=== PATIENT | male | born 1935 | race Caucasian/White ===

== ENCOUNTER 2020-04-24 18:45 | Observation (INO) | payer MEDICARE, BC ==
[2020-04-24] MEDS ORDERED: Sodium Chloride 0.9% 1,000 ML IV ONE (19:12)
[2020-04-24] MEDS ORDERED: Ondansetron 4 MG/2 ML SDV IVPUSH STA (19:12)
[2020-04-24] MEDS ORDERED: Morphine 4 MG/ML VIAL IVPUSH ONE (19:12)
--- NOTE | 2020-04-24 19:16 | EDM.PDOC ---
ED HPI GENERAL MEDICAL PROBLEM - General Chief Complaint: Genitourinary Problem Stated Complaint: Pain Time Seen by Provider: 04/24/20 19:09 Source of Information: Reports: Patient History Limitations: Reports: No Limitations - History of Present Illness INITIAL COMMENTS - FREE TEXT/NARRATIVE: This patient is an 85 year old male that presents to the ER. Patient reports that started he was having left lower back pain, left abdominal pain. He reports also having urinary urge and nausea. He reports he saw his PCP yesterday, labs were done and CT scan. Patient reports this was done in [place]. Patient reports that he was told he may have two kidney stones. Patient reports he was put on pill abx. Patient does have his labs with him that were done yesterday. His CR was 2.0 with previous CR of 1.4 at unknown history time. Patient wbc yesterday was 17.1. UA showed blood. The patient reports that since 1am this morning his pain has increased. He reports that as time has progressed he generally is not feeling well, increased pain, increased nausea. Onset Date: 04/22/20 Duration: Day(s): (2), Getting Worse Location: Reports: Abdomen, Back Quality: Reports: Ache, Sharp Severity: Moderate Improves with: Reports: None Worsens with: Reports: None Associated Symptoms: Reports: Malaise, Nausea/Vomiting. Denies: Confusion, Chest Pain, Cough, cough w sputum, Diaphoresis, Fever/Chills, Headaches, Loss of Appetite, Rash, Seizure, Shortness of Breath, Syncope, Weakness Left Flank Pain Score (Numeric/FACES): 7 - Related Data Allergies Allergy/AdvReac Type Severity Reaction Status Date / Time No Known Allergies Allergy Verified 04/24/20 18:50 Home Meds: Home Meds Cholecalciferol (Vitamin D3) [Vitamin D] 2,000 unit PO DAILY 03/12/14 [History] Triamterene/Hydrochlorothiazid [Dyazide 37.5-25 Capsule] 1 each PO ASDIRECTED PRN 03/12/14 [History] Vit C/Ascorb Sod/Multivit-Min [Emergen-C 500 mg Chewable Tab] 500 mg PO DAILY 04/24/20 [History] cefUROXime axetiL [Cefuroxime] 500 mg PO BID 04/24/20 [History] ED ROS GENERAL - Review of Systems Review Of Systems: See Below Constitutional: Reports: Malaise, Weakness (generalized), Fatigue HEENT: Reports: No Symptoms Respiratory: Reports: No Symptoms Cardiovascular: Reports: No Symptoms Endocrine: Reports: No Symptoms GI/Abdominal: Reports: Abdominal Pain (LLQ), Nausea. Denies: Vomiting : Reports: Flank Pain (left), Urgency, Urinary Retention Musculoskeletal: Reports: Back Pain (left) Skin: Reports: No Symptoms Neurological: Reports: No Symptoms Psychiatric: Reports: No Symptoms Hematologic/Lymphatic: Reports: No Symptoms Immunologic: Reports: No Symptoms ED EXAM, GI/ABD - Physical Exam Exam: See Below Exam Limited By: No Limitations General Appearance: Alert, WD/WN, No Apparent Distress Eyes: Bilateral: Normal Appearance Ears: Normal External Exam, Normal Canal, Hearing Grossly Normal, Normal TMs Nose: Normal Inspection, Normal Mucosa, No Blood Throat/Mouth: Normal Inspection, Normal Lips, Normal Teeth, Normal Gums, Normal Oropharynx, Normal Voice, No Airway Compromise Head: Atraumatic, Normocephalic Neck: Normal Inspection, Supple, Non-Tender, Full Range of Motion Respiratory/Chest: No Respiratory Distress, Lungs Clear, Normal Breath Sounds, No Accessory Muscle Use Cardiovascular: Normal Peripheral Pulses, Regular Rate, Rhythm, No Edema, No Gallop, No JVD, No Murmur, No Rub GI/Abdominal Exam: Normal Bowel Sounds, Soft, No Organomegaly, No Distention, No Abnormal Bruit, No Mass, Pelvis Stable, Tender (LLQ). No: Guarding, Rigid, Rebound (Male) Exam: Deferred Rectal (Males) Exam: Deferred Back Exam: Normal Inspection, Full Range of Motion, CVA Tenderness (L). No: CVA Tenderness (R) Extremities: Normal Inspection, Normal Range of Motion, Non-Tender, No Pedal Edema, Normal Capillary Refill Neurological: Alert, Oriented, Normal Cognition, No Motor/Sensory Deficits Psychiatric: Normal Affect, Normal Mood Skin Exam: Warm, Dry, Intact, Normal Color, No Rash Lymphatic: No Adenopathy Course - Vital Signs Last Recorded V/S: Last Vital Signs Temp 98.3 F 04/25/20 08:00 Pulse 84 04/25/20 08:00 Resp 14 04/25/20 08:00 BP 107/63 04/25/20 08:00 Pulse Ox 96 04/25/20 08:00 - Orders/Labs/Meds Orders: Active Orders 24 hr Category Date Time Status Abdomen Pelvis wo Cont [CT] Stat Exams 04/24/20 19:11 Taken CULTURE BLOOD [BC] Stat Lab 04/24/20 19:25 Received CULTURE BLOOD [BC] Stat Lab 04/24/20 19:33 Received Blood Culture x2 Reflex Set [OM.PC] Stat Oth 04/24/20 19:10 Ordered Medication Orders Acetaminophen (Tylenol) 650 mg PO Q4H PRN PRN Reason: Pain (Mild 1-3)/fever Ceftriaxone Sodium (Rocephin) 1 gm IVPUSH Q24H [facility] Last Admin: 04/24/20 22:18 Dose: 1 gm Documented by: CHAY Enoxaparin Sodium (Lovenox) 30 mg SUBCUT Q24H [facility] Last Admin: 04/24/20 22:18 Dose: 30 mg Documented by: CHAY Sodium Chloride (Normal Saline) 1,000 mls @ 75 mls/hr IV ASDIRECTED [facility] Stop: 04/25/20 10:53 Last Admin: 04/24/20 22:17 Dose: 75 mls/hr Documented by: CHAY Morphine Sulfate (Morphine) 2 mg IVPUSH Q2H PRN PRN Reason: Pain (severe 7-10) Ondansetron HCl (Zofran Odt) 4 mg PO Q6H PRN PRN Reason: nausea, able to take PO Oxycodone/Acetaminophen (Percocet 325-5 Mg) 1 tab PO Q4H PRN PRN Reason: Pain (moderate 4-6) Last Admin: 04/25/20 07:02 Dose: 1 tab Documented by: Admin: 04/24/20 22:25 Dose: 1 tab Documented by: CHAY Polyethylene Glycol (Miralax) 17 gm PO DAILY PRN PRN Reason: Constipation Tamsulosin HCl (Flomax) 0.4 mg PO BEDTIME [facility] Last Admin: 04/24/20 22:17 Dose: 0.4 mg Documented by: CHAY Labs: Laboratory Tests 04/24/20 04/24/20 04/24/20 Range/Units 19:33 19:33 19:33 WBC 16.8 H (5.0-10.0) 10^3/uL RBC 4.73 (4.50-6.00) 10^6/uL Hgb 15.1 (14.0-18.0) g/dL Hct 45.1 (40.0-54.0) % MCV 95.3 H (82.0-94.0) fL MCH 31.9 (27.0-32.0) pg MCHC 33.5 (33.0-38.0) g/dL RDW Coeff of Pari 12.0 (11.0-15.0) % Plt Count 222 (150-400) 10^3/uL Neut % (Auto) 83.4 (35-85) % Lymph % (Auto) 8.5 L (10-55) % [place] % (Auto) 7.3 (0-16) % Eos % (Auto) 0.6 (0-5) % Baso % (Auto) 0.2 (0-3) % Neut # (Auto) 13.98 H (1.80-7.00) 10^3/uL Lymph # (Auto) 1.43 (1.00-4.80) 10^3/uL [place] # (Auto) 1.22 H (0.00-0.80) 10^3/uL Eos # (Auto) 0.10 (0.00-0.45) 10^3/uL Baso # (Auto) 0.04 10^3/uL Sodium 136 (136-145) mEq/L Potassium 4.9 (3.5-5.0) mEq/L Chloride 99 (98-106) mEq/L Carbon Dioxide 26 (21-32) mmol/L BUN 19 H (7-18) mg/dL Creatinine 2.1 H D (0.7-1.3) mg/dL Est Cr Clr Drug Dosing 26.97 mL/min Estimated GFR (MDRD) 30 L (>=60) mL/min Glucose 227 H D (75-99) mg/dL Lactic Acid 3.2 H (0.4-2.0) mmol/L Calcium 9.2 (8.4-10.1) mg/dL Total Bilirubin 0.7 (0.0-1.0) mg/dL AST 15 (15-37) U/L ALT 25 (12-78) U/L Alkaline Phosphatase 92 (46-116) U/L Total Protein 7.8 (6.4-8.2) g/dL Albumin 3.5 (3.4-5.0) g/dL Amylase 62 (25-115) U/L Lipase 107 (73-393) U/L Urine Color (YELLOW) Urine Appearance (CLEAR) Urine pH (4.5-8.0) Ur Specific [place] (1.003-1.020) Urine Protein (NEGATIVE) mg/dL Urine Glucose (UA) (NEGATIVE) mg/dL Urine Ketones (NEGATIVE) mg/dL Urine Occult Blood (NEGATIVE) Urine Nitrite (NEGATIVE) Urine Bilirubin (NEGATIVE) Urine Urobilinogen (0.2-1.0) EU/dL Ur Leukocyte Esterase (NEGATIVE) Urine RBC (0-5) /HPF Urine WBC (0-5) /HPF 04/24/20 Range/Units 19:58 WBC (5.0-10.0) 10^3/uL RBC (4.50-6.00) 10^6/uL Hgb (14.0-18.0) g/dL Hct (40.0-54.0) % MCV (82.0-94.0) fL MCH (27.0-32.0) pg MCHC (33.0-38.0) g/dL RDW Coeff of Pari (11.0-15.0) % Plt Count (150-400) 10^3/uL Neut % (Auto) (35-85) % Lymph % (Auto) (10-55) % [place] % (Auto) (0-16) % Eos % (Auto) (0-5) % Baso % (Auto) (0-3) % Neut # (Auto) (1.80-7.00) 10^3/uL Lymph # (Auto) (1.00-4.80) 10^3/uL [place] # (Auto) (0.00-0.80) 10^3/uL Eos # (Auto) (0.00-0.45) 10^3/uL Baso # (Auto) 10^3/uL Sodium (136-145) mEq/L Potassium (3.5-5.0) mEq/L Chloride (98-106) mEq/L Carbon Dioxide (21-32) mmol/L BUN (7-18) mg/dL Creatinine (0.7-1.3) mg/dL Est Cr Clr Drug Dosing mL/min Estimated GFR (MDRD) (>=60) mL/min Glucose (75-99) mg/dL Lactic Acid (0.4-2.0) mmol/L Calcium (8.4-10.1) mg/dL Total Bilirubin (0.0-1.0) mg/dL AST (15-37) U/L ALT (12-78) U/L Alkaline Phosphatase (46-116) U/L Total Protein (6.4-8.2) g/dL Albumin (3.4-5.0) g/dL Amylase (25-115) U/L Lipase (73-393) U/L Urine Color Yellow (YELLOW) Urine Appearance Clear (CLEAR) Urine pH 6.0 (4.5-8.0) Ur Specific [place] 1.025 H (1.003-1.020) Urine Protein Negative (NEGATIVE) mg/dL Urine Glucose (UA) 500 H (NEGATIVE) mg/dL Urine Ketones Trace H (NEGATIVE) mg/dL Urine Occult Blood Trace-intact H (NEGATIVE) Urine Nitrite Negative (NEGATIVE) Urine Bilirubin Negative (NEGATIVE) Urine Urobilinogen 0.2 (0.2-1.0) EU/dL Ur Leukocyte Esterase Negative (NEGATIVE) Urine RBC 0-5 (0-5) /HPF Urine WBC Not seen (0-5) /HPF Meds: Medications Generic Name Dose Route Start Last Admin Trade Name Freq PRN Reason Stop Dose Admin Acetaminophen 650 mg 04/24/20 21:34 Tylenol PO Q4H PRN Pain (Mild 1-3)/fever Ceftriaxone Sodium 1 gm 04/24/20 22:00 04/24/20 22:18 Rocephin IVPUSH 1 gm Q24H ALISHA Administration Enoxaparin Sodium 30 mg 04/24/20 22:00 04/24/20 22:18 Lovenox SUBCUT 30 mg Q24H ALISHA Administration Sodium Chloride 1,000 mls @ 75 mls/hr 04/24/20 21:34 04/24/20 22:17 Normal Saline IV 04/25/20 10:53 75 mls/hr ASDIRECTED ALISHA Administration Morphine Sulfate 2 mg 04/24/20 21:34 Morphine IVPUSH Q2H PRN Pain (severe 7-10) Ondansetron HCl 4 mg 04/24/20 21:34 Zofran Odt PO Q6H PRN nausea, able to take PO Oxycodone/Acetaminophen 1 tab 04/24/20 21:34 04/25/20 07:02 Percocet 325-5 Mg PO 1 tab Q4H PRN Administration Pain (moderate 4-6) Polyethylene Glycol 17 gm 04/24/20 21:34 Miralax PO DAILY PRN Constipation Tamsulosin HCl 0.4 mg 04/24/20 21:34 04/24/20 22:17 Flomax PO 0.4 mg BEDTIME ALISHA Administration Discontinued Medications Generic Name Dose Route Start Last Admin Trade Name Freq PRN Reason Stop Dose Admin Sodium Chloride 1,000 mls @ 500 mls/hr 04/24/20 19:12 04/24/20 19:40 Normal Saline IV 04/24/20 21:11 500 mls/hr .BOLUS ONE Administration Morphine Sulfate 4 mg 04/24/20 19:12 04/24/20 19:40 Morphine IVPUSH 04/24/20 19:13 4 mg ONETIME ONE Administration Ondansetron HCl 4 mg 04/24/20 19:12 04/24/20 19:40 Zofran IVPUSH 04/24/20 19:13 4 mg NOW STA Administration - Radiology Interpretation Free Text/Narrative:: Abd/Pelvis CT without: 2mm UVJ ureter stone with hydroureter and hydronephrosis. See report for other findings not relevant to this ER visit. CT Results Date: 04/24/20 CT Results Time: 20:50 - Re-Assessments/Exams Free Text/Narrative Re-Assessment/Exam: 04/24/20 20:56 Patient does report he is feeling about half better since being in the ER. I will admit patient based on his elevated CR, WBC and ct result. UA just shows blood, I believe his wbc elevation is due to the hydro with elevated CR. Will admit, manage pain, strain urine, hydrate. I will prescribe abx, as patient was put on one yesterday. I will repeat labs in the morning and evaluate. 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 - Discharge Information *PRESCRIPTION DRUG MONITORING PROGRAM REVIEWED*: Not Applicable *COPY OF PRESCRIPTION DRUG MONITORING REPORT IN PATIENT BRENNAN: Not Applicable - My Orders Last 24 Hours: My Active Orders 04/24/20 19:10 Blood Culture x2 Reflex Set [OM.PC] Stat 04/24/20 19:11 Abdomen Pelvis wo Cont [CT] Stat 04/24/20 19:25 CULTURE BLOOD [BC] Stat 04/24/20 19:33 CULTURE BLOOD [BC] Stat - Assessment/Plan Last 24 Hours: My Active Orders 04/24/20 19:10 Blood Culture x2 Reflex Set [OM.PC] Stat 04/24/20 19:11 Abdomen Pelvis wo Cont [CT] Stat 04/24/20 19:25 CULTURE BLOOD [BC] Stat 04/24/20 19:33 CULTURE BLOOD [BC] Stat Plan: PLEASE SEE RN NOTE FOR PFSH. PLEASE USE ER H&P ADMIT H&P
[2020-04-24] MEDS ORDERED: Acetaminophen 325 MG Tab PO PRN (21:34)
[2020-04-24] MEDS ORDERED: Polyethylene Glycol 3350 Powder 17 GM Packet PO PRN (21:34)
[2020-04-24] MEDS ORDERED: Ondansetron 4 MG Tab.DIS PO PRN (21:34)
[2020-04-24] MEDS ORDERED: Morphine 2 MG/ML SYRINGE IVPUSH PRN (21:34)
[2020-04-24] MEDS ORDERED: Sodium Chloride 0.9% 1,000 ML IV SCH (21:34)
[2020-04-24] MEDS ORDERED: Enoxaparin 30 MG/0.3 ML Syringe SUBCUT SCH (22:00)
[2020-04-24] MEDS: Tamsulosin 0.4 MG Cap.ER PO SCH (22:17)
[2020-04-24] MEDS: cefTRIAXone 1 GM Vial IVPUSH SCH (22:18)
[2020-04-24] MEDS: Acetaminophen/oxyCODONE 325-5 MG Tab PO PRN (22:25)
[2020-04-25] MEDS: Acetaminophen/oxyCODONE 325-5 MG Tab PO PRN (07:02)
--- NOTE | 2020-04-25 10:34 | PCM.PN ---
- General Info Date of Service: 04/25/20 Functional Status: Reports: Tolerating Diet, Urinating (dribbling this morning), Other (still having pain left groin, does help with pain pill) - Review of Systems General: Reports: No Symptoms. Denies: Fever HEENT: Reports: No Symptoms Pulmonary: Reports: No Symptoms Cardiovascular: Reports: No Symptoms Gastrointestinal: Reports: No Symptoms Genitourinary: Reports: Pain (left groin), Urgency, Retention, Flank Pain (left), Other (dribbling) Musculoskeletal: Reports: No Symptoms Skin: Reports: No Symptoms Neurological: Reports: No Symptoms Psychiatric: Reports: No Symptoms - Patient Data Vitals - Most Recent: Last Vital Signs Temp 98.3 F 04/25/20 08:00 Pulse 84 04/25/20 08:00 Resp 14 04/25/20 08:00 BP 107/63 04/25/20 08:00 Pulse Ox 96 04/25/20 08:00 Weight - Most Recent: 230 lb Lab Results Last 24 Hours: Laboratory Results - last 24 hr 04/24/20 04/24/20 04/24/20 Range/Units 19:33 19:33 19:33 WBC 16.8 H (5.0-10.0) 10^3/uL RBC 4.73 (4.50-6.00) 10^6/uL Hgb 15.1 (14.0-18.0) g/dL Hct 45.1 (40.0-54.0) % MCV 95.3 H (82.0-94.0) fL MCH 31.9 (27.0-32.0) pg MCHC 33.5 (33.0-38.0) g/dL RDW Coeff of Pari 12.0 (11.0-15.0) % Plt Count 222 (150-400) 10^3/uL Neut % (Auto) 83.4 (35-85) % Lymph % (Auto) 8.5 L (10-55) % [place] % (Auto) 7.3 (0-16) % Eos % (Auto) 0.6 (0-5) % Baso % (Auto) 0.2 (0-3) % Neut # (Auto) 13.98 H (1.80-7.00) 10^3/uL Lymph # (Auto) 1.43 (1.00-4.80) 10^3/uL [place] # (Auto) 1.22 H (0.00-0.80) 10^3/uL Eos # (Auto) 0.10 (0.00-0.45) 10^3/uL Baso # (Auto) 0.04 10^3/uL Sodium 136 (136-145) mEq/L Potassium 4.9 (3.5-5.0) mEq/L Chloride 99 (98-106) mEq/L Carbon Dioxide 26 (21-32) mmol/L BUN 19 H (7-18) mg/dL Creatinine 2.1 H D (0.7-1.3) mg/dL Est Cr Clr Drug Dosing 26.97 mL/min Estimated GFR (MDRD) 30 L (>=60) mL/min Glucose 227 H D (75-99) mg/dL Lactic Acid 3.2 H (0.4-2.0) mmol/L Calcium 9.2 (8.4-10.1) mg/dL Total Bilirubin 0.7 (0.0-1.0) mg/dL AST 15 (15-37) U/L ALT 25 (12-78) U/L Alkaline Phosphatase 92 (46-116) U/L Total Protein 7.8 (6.4-8.2) g/dL Albumin 3.5 (3.4-5.0) g/dL Amylase 62 (25-115) U/L Lipase 107 (73-393) U/L Urine Color (YELLOW) Urine Appearance (CLEAR) Urine pH (4.5-8.0) Ur Specific [place] (1.003-1.020) Urine Protein (NEGATIVE) mg/dL Urine Glucose (UA) (NEGATIVE) mg/dL Urine Ketones (NEGATIVE) mg/dL Urine Occult Blood (NEGATIVE) Urine Nitrite (NEGATIVE) Urine Bilirubin (NEGATIVE) Urine Urobilinogen (0.2-1.0) EU/dL Ur Leukocyte Esterase (NEGATIVE) Urine RBC (0-5) /HPF Urine WBC (0-5) /HPF 04/24/20 04/25/20 04/25/20 Range/Units 19:58 07:30 07:30 WBC 13.3 H (5.0-10.0) 10^3/uL RBC 4.26 L (4.50-6.00) 10^6/uL Hgb 13.5 L (14.0-18.0) g/dL Hct 41.6 (40.0-54.0) % MCV 97.7 H (82.0-94.0) fL MCH 31.7 (27.0-32.0) pg MCHC 32.5 L (33.0-38.0) g/dL RDW Coeff of Pari 12.2 (11.0-15.0) % Plt Count 205 (150-400) 10^3/uL Neut % (Auto) 72.5 (35-85) % Lymph % (Auto) 13.4 (10-55) % [place] % (Auto) 11.4 (0-16) % Eos % (Auto) 2.4 (0-5) % Baso % (Auto) 0.3 (0-3) % Neut # (Auto) 9.67 H (1.80-7.00) 10^3/uL Lymph # (Auto) 1.79 (1.00-4.80) 10^3/uL [place] # (Auto) 1.52 H (0.00-0.80) 10^3/uL Eos # (Auto) 0.32 (0.00-0.45) 10^3/uL Baso # (Auto) 0.04 10^3/uL Sodium 138 (136-145) mEq/L Potassium 4.6 (3.5-5.0) mEq/L Chloride 101 (98-106) mEq/L Carbon Dioxide 28 (21-32) mmol/L BUN 17 (7-18) mg/dL Creatinine 2.1 H (0.7-1.3) mg/dL Est Cr Clr Drug Dosing 26.55 mL/min Estimated GFR (MDRD) 30 L (>=60) mL/min Glucose 166 H D (75-99) mg/dL Lactic Acid (0.4-2.0) mmol/L Calcium 8.6 (8.4-10.1) mg/dL Total Bilirubin (0.0-1.0) mg/dL AST (15-37) U/L ALT (12-78) U/L Alkaline Phosphatase (46-116) U/L Total Protein (6.4-8.2) g/dL Albumin (3.4-5.0) g/dL Amylase (25-115) U/L Lipase (73-393) U/L Urine Color Yellow (YELLOW) Urine Appearance Clear (CLEAR) Urine pH 6.0 (4.5-8.0) Ur Specific [place] 1.025 H (1.003-1.020) Urine Protein Negative (NEGATIVE) mg/dL Urine Glucose (UA) 500 H (NEGATIVE) mg/dL Urine Ketones Trace H (NEGATIVE) mg/dL Urine Occult Blood Trace-intact H (NEGATIVE) Urine Nitrite Negative (NEGATIVE) Urine Bilirubin Negative (NEGATIVE) Urine Urobilinogen 0.2 (0.2-1.0) EU/dL Ur Leukocyte Esterase Negative (NEGATIVE) Urine RBC 0-5 (0-5) /HPF Urine WBC Not seen (0-5) /HPF Med Orders - Current: Current Medications Acetaminophen (Tylenol) 650 mg PO Q4H PRN PRN Reason: Pain (Mild 1-3)/fever Ceftriaxone Sodium (Rocephin) 1 gm IVPUSH Q24H [facility] Last Admin: 04/24/20 22:18 Dose: 1 gm Documented by: Enoxaparin Sodium (Lovenox) 30 mg SUBCUT Q24H [facility] Last Admin: 04/24/20 22:18 Dose: 30 mg Documented by: Sodium Chloride (Normal Saline) 1,000 mls @ 75 mls/hr IV ASDIRECTED [facility] Stop: 04/25/20 10:53 Last Admin: 04/24/20 22:17 Dose: 75 mls/hr Documented by: Morphine Sulfate (Morphine) 2 mg IVPUSH Q2H PRN PRN Reason: Pain (severe 7-10) Ondansetron HCl (Zofran Odt) 4 mg PO Q6H PRN PRN Reason: nausea, able to take PO Oxycodone/Acetaminophen (Percocet 325-5 Mg) 1 tab PO Q4H PRN PRN Reason: Pain (moderate 4-6) Last Admin: 04/25/20 07:02 Dose: 1 tab Documented by: Polyethylene Glycol (Miralax) 17 gm PO DAILY PRN PRN Reason: Constipation Tamsulosin HCl (Flomax) 0.4 mg PO BEDTIME [facility] Last Admin: 04/24/20 22:17 Dose: 0.4 mg Documented by: Discontinued Medications Sodium Chloride (Normal Saline) 1,000 mls @ 500 mls/hr IV .BOLUS ONE Stop: 04/24/20 21:11 Last Admin: 04/24/20 19:40 Dose: 500 mls/hr Documented by: Morphine Sulfate (Morphine) 4 mg IVPUSH ONETIME ONE Stop: 04/24/20 19:13 Last Admin: 04/24/20 19:40 Dose: 4 mg Documented by: Ondansetron HCl (Zofran) 4 mg IVPUSH NOW STA Stop: 04/24/20 19:13 Last Admin: 04/24/20 19:40 Dose: 4 mg Documented by: - Exam General: Alert, Oriented, Cooperative, No Acute Distress Neck: Supple, Trachea Midline Lungs: Clear to Auscultation, Normal Respiratory Effort Cardiovascular: Regular Rate, Regular Rhythm GI/Abdominal Exam: Soft, Distended (bladder), Tender (LLQ, over bladder, which feels distended this morning.) (Male) Exam: Suprapubic Fullness Back Exam: Normal Inspection, Full Range of Motion, CVA Tenderness (L) Extremities: Normal Inspection, Normal Range of Motion, Non-Tender, Normal Capillary Refill, Pedal Edema (trace +1 BLE) Peripheral Pulses: 2+: Radial (L), Radial (R), Posterior Tibial (L), Posterior Tibial (R) Skin: Warm, Dry, Intact Neurological: No New Focal Deficit, Normal Speech Psy/Mental Status: Alert, Normal Affect, Normal Mood Sepsis Event Note - Evaluation Sepsis Screening Result: No Definite Risk - Focused Exam Vital Signs: Vital Signs Temp Pulse Resp BP Pulse Ox 04/25/20 08:00 98.3 F 84 14 107/63 96 04/25/20 04:00 97.3 F 72 18 109/63 97 04/25/20 00:00 97.5 F 82 18 105/58 L 97 - Problem List Review Problem List Initiated/Reviewed/Updated: Yes - My Orders Last 24 Hours: My Active Orders 04/24/20 19:10 Blood Culture x2 Reflex Set [OM.PC] Stat 04/24/20 19:11 Abdomen Pelvis wo Cont [CT] Stat 04/24/20 19:25 CULTURE BLOOD [BC] Stat 04/24/20 19:33 CULTURE BLOOD [BC] Stat 04/24/20 21:15 Resuscitation Status Routine 04/24/20 21:34 Acetaminophen [TylenoL] 650 mg PO Q4H PRN Acetaminophen/oxyCODONE [Percocet 325-5 MG] 1 tab PO Q4H PRN Morphine 2 mg IVPUSH Q2H PRN Ondansetron [Zofran ODT] 4 mg PO Q6H PRN Sodium Chloride 0.9% [Normal Saline] 1,000 ml IV ASDIRECTED Tamsulosin [Flomax] 0.4 mg PO BEDTIME polyethylene glycoL 3350 [MiraLAX] 17 gm PO DAILY PRN 04/24/20 21:34 Patient Status [ADT] Routine Ambulate [RC] .PRN Antiembolic Devices [RC] 1000,2200 Height and Weight [RC] 0600 Height and Weight [RC] UPON Notify Provider Vital Signs [RC] .PRN Oxygen Therapy [RC] .PRN Strain Urine [RC] ASDIRECTED Up With Assistance [RC] .PRN Up to Chair [RC] .PRN Vital Signs [RC] 0000,0400,0800,1200,1600,2000 Antiembolic Hose [OM.PC] Per Unit Routine 04/24/20 22:00 Enoxaparin [Lovenox] 30 mg SUBCUT Q24H cefTRIAXone [Rocephin] 1 gm IVPUSH Q24H 04/25/20 09:24 Urinary Catheter Assessment [RC] ASDIRECTED 04/25/20 09:30 Insert [place] Catheter [Insert Urinary Catheter] [OM.PC] Q24H 04/26/20 05:00 BASIC METABOLIC PANEL,BMP [CHEM] DAILY CBC WITH AUTO DIFF [HEME] DAILY - Plan Plan:: 04/25/20 0900am This patient is an 85 year old pleasant male that was admitted last night. He was admitted for renal insufficiency, hydronephrosis. His pain was controlled with pain medication. This morning the patient reports that he is still having some left back, left groin pain. Patient reports that the pain medication does help some. Patient had a 2mm stone UVJ left. The patient today reports that has not urinated much and has been dribbling with urinary urge. I reviewed patient labs and his CR on admission was 2.1, and today it is 2.1 as well. On exam, the patient does have distended bladder, and with his urge and continued elevated CR. I will insert a oshea to check for urinary retention. This was inserted and 550ml output with insertion per RN. The patient now reports he does feel a little relief. Will continue the admit and recheck CR tomorrow morning for improvement after oshea insertion. I have stopped his fluids.
[2020-04-25] MEDS ORDERED: Hydrochlorothiazide/Triamterene 25-37.5 MG Cap PO SCH (14:15)
[2020-04-25] MEDS ORDERED: Furosemide 40 MG/4 ML VIAL IVPUSH ONE ×2 (19:26→19:29)
[2020-04-25 20:29] VITALS: BP 138/63; PULSE 88
[2020-04-25] MEDS: Tamsulosin 0.4 MG Cap.ER PO SCH (20:29)
--- NOTE | 2020-04-25 21:13 | PCM.DCSUM1 ---
Discharge Summary - Hospital Course HPI Initial Comments: 04/25/20 1900 I was approached by ARRON BECKER about this patient. He reported the patient was not feeling well and had increase in pain and was diaphoretic. I went and saw the patient right away. The patient reports that he generally does not feel very well this evening. He reports that his pain is much worse. He reports now he is also hurting on the right lower abd and right flank, but also his left abd and flank have increase in pain. The patient is diaphoretic. The patient oxygen saturation is 90% on RA. Placed on 2L NC to 95%. Patient reports that he feels lightheaded and generally weak. He reports he just not feel very good. The patient denies chest pain, shortness of breath, headache. Repeated patient labs. Patient wbc is back up to 16.8, his CR has not moved and is again 2.1 even after fluids and oshea insertion. Patient temperature 100.8. Patient vital signs reviewed. I spoke to patient and via phone who has reported that would like transferred if he is worse. I then called and spoke to Dr. Garza at [facility] who has accepted the patient. He reports to give another Liter NS and continue patient abx orders. I will transfer patient. - Discharge Data Discharge Date: 04/25/20 Discharge Disposition: DC/Tfer to Acute Hospital 02 Condition: Poor - Referral to Home Health Primary Care Physician: PCP None - Discharge Plan *PRESCRIPTION DRUG MONITORING PROGRAM REVIEWED*: Not Applicable *COPY OF PRESCRIPTION DRUG MONITORING REPORT IN PATIENT BRENNAN: Not Applicable Home Medications: Home Meds Cholecalciferol (Vitamin D3) [Vitamin D] 2,000 unit PO DAILY 03/12/14 [History] Triamterene/Hydrochlorothiazid [Dyazide 37.5-25 Capsule] 1 each PO ASDIRECTED PRN 03/12/14 [History] Vit C/Ascorb Sod/Multivit-Min [Emergen-C 500 mg Chewable Tab] 500 mg PO DAILY 04/24/20 [History] cefUROXime axetiL [Cefuroxime] 500 mg PO BID 04/24/20 [History] Oxygen Therapy Mode: Nasal Cannula Forms: ED Department Discharge Referrals: PCP,None [Primary Care Provider] - - Discharge Summary/Plan Comment DC Time >30 min.: No Discharge Summary/Plan Comment: This patient is being transferred to [facility]. The risk vs benefits are explained to the patient and he has accepted the transfer. The risk of transfer are mvc, , sepsis, worsening of condition. The risk of staying in [place] is worsening of condition, , sepsis, no urologist. The benefits of the transfer are higher level of care, urologist. The benefits of staying in [place] is closer to home. - General Info Functional Status: Reports: New Symptoms (pain increased, diaphoretic, generally malaised, lightheaded) - Review of Systems General: Reports: Fever, Weakness (generally), Fatigue, Malaise, Chills HEENT: Reports: No Symptoms Pulmonary: Denies: Shortness of Breath Cardiovascular: Reports: Lightheadedness Gastrointestinal: Reports: Abdominal Pain (increase in pain LLQ, RLQ.), Nausea. Denies: Vomiting Genitourinary: Reports: Other (oshea in place) Musculoskeletal: Reports: Back Pain (flank bilateral) Skin: Reports: Pallor, Diaphoresis Neurological: Reports: No Symptoms Psychiatric: Reports: No Symptoms - Patient Data Vitals - Most Recent: Last Vital Signs Temp 99.0 F 04/25/20 20:00 Pulse 88 04/25/20 20:00 Resp 18 04/25/20 20:00 BP 138/63 04/25/20 20:00 Pulse Ox 90 L 04/25/20 20:00 Weight - Most Recent: 230 lb I&O - Last 24 hours: Intake & Output 04/25/20 04/25/20 04/25/20 06:59 14:59 22:59 Intake Total 1000 Balance 1000 Lab Results - Last 24 hrs: Laboratory Results - last 24 hr 04/25/20 04/25/20 04/25/20 Range/Units 07:25 07:25 07:25 WBC 16.8 H (5.0-10.0) 10^3/uL RBC 4.23 L (4.50-6.00) 10^6/uL Hgb 13.6 L (14.0-18.0) g/dL Hct 41.4 (40.0-54.0) % MCV 97.9 H (82.0-94.0) fL MCH 32.2 H (27.0-32.0) pg MCHC 32.9 L (33.0-38.0) g/dL RDW Coeff of Pari 12.2 (11.0-15.0) % Plt Count 207 (150-400) 10^3/uL Neut % (Auto) 77.6 (35-85) % Lymph % (Auto) 9.1 L (10-55) % Billings % (Auto) 11.1 (0-16) % Eos % (Auto) 2.1 (0-5) % Baso % (Auto) 0.1 (0-3) % Neut # (Auto) 13.04 H (1.80-7.00) 10^3/uL Lymph # (Auto) 1.53 (1.00-4.80) 10^3/uL Billings # (Auto) 1.87 H (0.00-0.80) 10^3/uL Eos # (Auto) 0.35 (0.00-0.45) 10^3/uL Baso # (Auto) 0.02 10^3/uL Sodium 135 L (136-145) mEq/L Potassium 4.4 (3.5-5.0) mEq/L Chloride 101 (98-106) mEq/L Carbon Dioxide 27 (21-32) mmol/L BUN 18 (7-18) mg/dL Creatinine 2.1 H (0.7-1.3) mg/dL Est Cr Clr Drug Dosing 26.55 mL/min Estimated GFR (MDRD) 30 L (>=60) mL/min Glucose 171 H (75-99) mg/dL Calcium 9.2 (8.4-10.1) mg/dL NT-Pro-B Natriuret Pep 382 (0-1000) pg/mL 04/25/20 04/25/20 Range/Units 07:30 07:30 WBC 13.3 H (5.0-10.0) 10^3/uL RBC 4.26 L (4.50-6.00) 10^6/uL Hgb 13.5 L (14.0-18.0) g/dL Hct 41.6 (40.0-54.0) % MCV 97.7 H (82.0-94.0) fL MCH 31.7 (27.0-32.0) pg MCHC 32.5 L (33.0-38.0) g/dL RDW Coeff of Pari 12.2 (11.0-15.0) % Plt Count 205 (150-400) 10^3/uL Neut % (Auto) 72.5 (35-85) % Lymph % (Auto) 13.4 (10-55) % Billings % (Auto) 11.4 (0-16) % Eos % (Auto) 2.4 (0-5) % Baso % (Auto) 0.3 (0-3) % Neut # (Auto) 9.67 H (1.80-7.00) 10^3/uL Lymph # (Auto) 1.79 (1.00-4.80) 10^3/uL Billings # (Auto) 1.52 H (0.00-0.80) 10^3/uL Eos # (Auto) 0.32 (0.00-0.45) 10^3/uL Baso # (Auto) 0.04 10^3/uL Sodium 138 (136-145) mEq/L Potassium 4.6 (3.5-5.0) mEq/L Chloride 101 (98-106) mEq/L Carbon Dioxide 28 (21-32) mmol/L BUN 17 (7-18) mg/dL Creatinine 2.1 H (0.7-1.3) mg/dL Est Cr Clr Drug Dosing 26.55 mL/min Estimated GFR (MDRD) 30 L (>=60) mL/min Glucose 166 H (75-99) mg/dL Calcium 8.6 (8.4-10.1) mg/dL NT-Pro-B Natriuret Pep (0-1000) pg/mL CORRIE Results - Last 24 hrs: Microbiology 04/24/20 19:25 Aerobic Blood Culture - Preliminary Blood - Venous - Lab Draw NO GROWTH AFTER 1 DAY Anaerobic Blood Culture - Preliminary NO GROWTH AFTER 1 DAY 04/24/20 19:33 Aerobic Blood Culture - Preliminary Blood - Venous NO GROWTH AFTER 1 DAY Anaerobic Blood Culture - Preliminary NO GROWTH AFTER 1 DAY Med Orders - Current: Current Medications Acetaminophen (Tylenol) 650 mg PO Q4H PRN PRN Reason: Pain (Mild 1-3)/fever Ceftriaxone Sodium (Rocephin) 1 gm IVPUSH Q24H ALISHA Last Admin: 04/24/20 22:18 Dose: 1 gm Documented by: Enoxaparin Sodium (Lovenox) 30 mg SUBCUT Q24H COUNT INCLUDES THE [facility] Last Admin: 04/24/20 22:18 Dose: 30 mg Documented by: Morphine Sulfate (Morphine) 2 mg IVPUSH Q2H PRN PRN Reason: Pain (severe 7-10) Ondansetron HCl (Zofran Odt) 4 mg PO Q6H PRN PRN Reason: nausea, able to take PO Last Admin: 04/25/20 17:22 Dose: 4 mg Documented by: Oxycodone/Acetaminophen (Percocet 325-5 Mg) 1 tab PO Q4H PRN PRN Reason: Pain (moderate 4-6) Last Admin: 04/25/20 07:02 Dose: 1 tab Documented by: Polyethylene Glycol (Miralax) 17 gm PO DAILY PRN PRN Reason: Constipation Tamsulosin HCl (Flomax) 0.4 mg PO BEDTIME COUNT INCLUDES THE [facility] Last Admin: 04/25/20 20:29 Dose: 0.4 mg Documented by: Triamterene/HCTZ (Dyazide 25-37.5 Mg) 0 each PO DAILY COUNT INCLUDES THE [facility] Last Admin: 04/25/20 14:46 Dose: 1 each Documented by: Discontinued Medications Furosemide (Lasix) 40 mg IVPUSH ONETIME ONE Stop: 04/25/20 19:27 Furosemide (Lasix) 40 mg IVPUSH ONETIME ONE Stop: 04/25/20 19:30 Sodium Chloride (Normal Saline) 1,000 mls @ 500 mls/hr IV .BOLUS ONE Stop: 04/24/20 21:11 Last Admin: 04/24/20 19:40 Dose: 500 mls/hr Documented by: Sodium Chloride (Normal Saline) 1,000 mls @ 75 mls/hr IV ASDIRECTED ALISHA Stop: 04/25/20 10:53 Last Infusion: 04/25/20 12:05 Dose: Infused Documented by: Morphine Sulfate (Morphine) 4 mg IVPUSH ONETIME ONE Stop: 04/24/20 19:13 Last Admin: 04/24/20 19:40 Dose: 4 mg Documented by: Ondansetron HCl (Zofran) 4 mg IVPUSH NOW STA Stop: 04/24/20 19:13 Last Admin: 04/24/20 19:40 Dose: 4 mg Documented by: - Exam General: Reports: Alert, Oriented, Cooperative, Mild Distress Neck: Reports: Supple, Trachea Midline, No JVD Lungs: Reports: Clear to Auscultation, Normal Respiratory Effort Cardiovascular: Reports: Regular Rate, Regular Rhythm GI/Abdominal Exam: Normal Bowel Sounds, Soft, Distended, Guarding, Tender (RLQ, LLQ), Other (obese). No: Rebound Back Exam: Reports: Normal Inspection, Full Range of Motion, CVA Tenderness (L), CVA Tenderness (R) Extremities: Normal Inspection, Normal Range of Motion, Non-Tender, No Pedal Edema, Normal Capillary Refill Skin: Reports: Warm, Dry, Intact Neurological: Reports: No New Focal Deficit, Normal Speech Psy/Mental Status: Reports: Alert, Anxious
[2020-04-25] MEDS ORDERED: Sodium Chloride 0.9% 1,000 ML IV SCH (21:45)
[2020-04-25] MEDS: cefTRIAXone 1 GM Vial IVPUSH SCH (22:28)
== END 2020-04-25 23:06 ==
LOC: CC.ED 18:45 → CC.MS 20:55 → UNDOADMOB 20:55 → CC.MS 21:13 → UNDODISOB 04-25 23:06
PROVIDERS: ADMIT Nurse Practitioner; ATTEND Family Medicine
DX: N13.4 Hydroureter (principal); N28.89 Other specified disorders of kidney and ureter; N13.2 Hydronephrosis with renal and ureteral calculous obstruction
CPT/HCPCS: 36415; 51702; 71045; 74176; 80048; 80053; 81001; 82150; 83605; 83690; 83880; 85025; 87040; 96361; 96372; 96374; 96375; 96376; 99285-25; A9270-GY; G0378; J0696; J1650; J2270; J2405; J7030